=== PATIENT | male | born 1965 | race Caucasian/White ===

== ENCOUNTER 2020-08-13 02:37 | Outpatient (CLI) | payer BC, SELFPAY ==
[2020-08-14 15:27] LABS: COVID-19 RT-PCR Result NEGATIVE (Negative)
== END 2020-08-13 02:57 ==
PROVIDERS: PCP Neuromusculoskeletal Medicine & OMM; Visit Provider Surgery
DX: Z11.52 Encounter for screening for COVID-19 (principal); Z01.818 Encounter for other preprocedural examination
CPT/HCPCS: U0003

== ENCOUNTER 2020-08-17 10:12 | Day surgery (SDC) | payer BC, SELFPAY ==
--- NOTE | 2020-08-14 15:13 | NUR.NOTE ---
Addendum entered by Mario Busch 08/14/20 15:16: Voicemail was left with instructions and time for patient. Original Note: X2 Attempts to reach patient unsuccessfully. Arrival time of 1015, NPO status explained, arrive at main entrance with mask, on ,and have ride home set up in place prior to arrival. Reiterated to review bowel prep instructions prior to starting .Nursing Note:
--- NOTE | 2020-08-17 07:06 | COLE_ITS ---
Date of service: 08/17/20 Time of Service: 11:11 Colonoscopy Report Date of procedure: 08/17/20 Pre-op diagnosis general: Colon Cancer Screening Post-op diagnosis procedure note: other (polyps x12) Procedure: Colonoscopy with polypectomy Surgeon: Elizabeth Sanchez Anesthesia proc note operative: other (General/ASA 2/Alexander Jewell CRNA) Estimated blood loss (mL): 5 Pathology: other (Ascending x2,transverse x2. descending x1, sigmoid x5, rectal x2 polyps) Complications: None Disposition: same day Indications: The patient is here for Colonoscopy pre-op. He has no family history of colon cancer. He has not had any bowel habit changes. -Discussed colonoscopy bowel prep as well as the procedure. Discussed possible complications of the procedure to include bleeding, pain, perforation, missed small lesion/polyp, sore throat, aspiration and adverse reaction to the medications. Questions were answered to patient?s satisfaction. No guarantees were implied or given. Prep: Miralax/Dulcolax Procedure Start Time: : Procedure End Time: : Retraction Time: 40 minutes Findings: Multiple sessile and one pedunculated polyp Procedure Description: After informed consent was obtained the patient was taken to the procedure room and placed in a left decubitous position. Monitors were applied and a time out was done. The patients name, date of , procedure, allergies to medications and metal in their body was reviewed. The patient was then sedated. Once sedated and comfortable a rectal exam was done. External exam was normal. Internal exam revealed a normal sphincter tone and no palpable masses. The prostate felt smooth. The scope was then introduced and retro-flexed. No internal hemorrhoids, polyps or masses were identified on retro-flexion. The scope was then advanced to the cecum without difficulty. The ileocecal valve and appendiceal orifice were identified. The prep was good. The scope was then slowly retracted over 40 minutes back into the rectum. Polyps were removed with cold forceps in the as cending x2, transverse x2, descending x1, sigmoid x5 and rectum x1. One polyp was removed with a hot snare in the rectum. There was no diverticulosis noted. The scope was removed and the patient was woken up and taken back to Same day surgery in stable condition. The patient tolerated the procedure well and there were no immediate complications. Follow up: The patient should follow up in 3 years unless they develop changes in bowel habits or other new gastrointestinal complaints.
--- NOTE | 2020-08-17 07:07 | W.PM.DSUDISC ---
Discharge Plan Disposition Patient Disposition: HOME Condition: Good Discharge Details Reason For Visit: Colonoscopy Attending Provider: Elizabeth Sanchez Primary Care Provider: Robin Gentile Home Meds and New Rx's Prescriptions: Continued hydrochlorothiazide 25 mg tablet 25 mg PO DAILY RF: 0 losartan 100 mg tablet 100 mg PO DAILY RF: 0 Discontinued polyethylene glycol 3350 17 gram/dose powder 238 g PO ONCE Qty: 238 RF: 0 bisacodyl [Dulcolax (bisacodyl)] 5 mg tablet,delayed release (DR/EC) 5 mg PO ONCE Qty: 4 RF: 0 Discharge Instructions Instructions: Colorectal Polyps (DC) Additional Instructions: Findings: Polyps x12 Follow up: 3 years Please call if you develop: fevers >101.5 Nausea or Vomiting Abdominal pain that is not transient DAY SURGERY UNIT POST ENDOSCOPY INSTRUCTIONS 1. Because there will be medication in your system for the next 24 hours, you may feel a little sleepy. Your coordination will be affected. Therefore: a. Do not drive or operate dangerous equipment for 24 hours. b. Do not drink alcohol beverages for 24 hours (not even beer). c. Plan to go home and rest for the day. 2. Generally there are no restrictions on your activity after a day or so has gone by, but you may feel a bit fatigued for a few days. 3 After you arrive home you may have a light meal and return to a normal diet as you can tolerate it without feeling sick to your stomach. 4. After surgery, you may feel pain or discomfort. This should be only transient, but if it persists please contact your doctor. 5. If there are any questions regarding the findings of your procedure, please feel free to contact your doctor. 6. If you are unable to contact your doctor with a problem, contact the hospital at [phone]. 7. Continue all your regular medications unless directed otherwise. I understand the above instructions and have no questions. Signature of Patient or Responsible Adult Escort Date/Time Name of Responsible Adult Escort Signature of Nurse Date/Time Activity:: Activity as Tolerated Diet:: As Tolerated Discharge Orders Discharge Orders: Discharge Order (Routine); Ordered 08/17/20 Ordered By: Elizabeth Sanchez
[2020-08-17 10:30] VITALS: BP 143/84; PULSE 68; RESP 18; TEMP 36.9; O2SAT 97
[2020-08-17] MEDS: Lactated Ringers 1,000 ML 80 ML IV (10:40)
--- NOTE | 2020-08-17 11:26 | BOWEL_PTH ---
PATIENT: ZACKERY AGMBLE LOC: [facility] U#:[id number] AGE/SX: 55/M ROOM: RE08/17/[address]: Elizabeth Sanchez MD : [id number] BED: DIS: 08/17/2020 SPEC #: [id number] RECD: 08/17/20 12:24 STATUS: JOSE RE #: [id number] SEB: 08/17/20 11:[address]: Elizabeth Sanchez DEPT: Surgical Specimen RECD BY: Nora Mclain ENTERED: 08/17/20 12:26 SP TYPE: Bowel OTHR DR: Robin Gentile Tissues: 1 - BIOPSY BOWEL 2 - BIOPSY BOWEL 3 - BIOPSY BOWEL 4 - BIOPSY BOWEL 5 - BIOPSY BOWEL Procedures: GROSS AND MICRO LEVEL 4 Comments: [id number]
[2020-08-17 12:30] VITALS: BP 121/68; PULSE 70; RESP 16; TEMP 36.4; O2SAT 99
[2020-08-17 12:58] VITALS: BP 134/84; PULSE 63; RESP 16; TEMP 36.9; O2SAT 100
== END 2020-08-17 13:30 | disposition home or self-care (01) ==
LOC: SUR 10:12
PROVIDERS: PCP Neuromusculoskeletal Medicine & OMM; Visit Provider Surgery
PROC: 0DJD8ZZ Inspection of Lower Intestinal Tract, Via Natural or Artificial Opening Endoscopic (ICD-10-PCS; CPT 45378; principal; 2020-08-17 11:30)
DX: Z12.11 Encounter for screening for malignant neoplasm of colon (principal); D12.2 Benign neoplasm of ascending colon; D12.3 Benign neoplasm of transverse colon; D12.4 Benign neoplasm of descending colon; D12.8 Benign neoplasm of rectum
CPT/HCPCS: 45385; 45380; 88305; J2001

== ENCOUNTER 2023-05-04 08:13 | Outpatient (CLI) | payer BC, SELFPAY ==
[2023-05-04 08:30] VITALS: BP 134/81; PULSE 66; RESP 20; TEMP 36.6; O2SAT 96
--- NOTE | 2023-05-04 09:03 | PDOC.PAIN ---
Date of service: 05/04/23 Time of Service: 09:04 Pain Managment Procedure Note Procedure Note Procedure Note: Procedure Note Cervical Interlaminar Epidural Steroid Injection Date of Service: May 04, 2023 Patient:? ZACKERY GAMBLE? Provider:? Minor Lynch DO, MPH ZACKERY has been referred to the [facility] for cervical epidural steroid injection.? Pre-operative diagnosis: Cervical Radiculopathy Post-operative diagnosis: Same Pre-procedure pain: VAS= 8/10 Comments: He was in Neurosurgery at [facility] on 12/22/22 and this procedure was recommended. ZACKERY was interviewed and the medical record was reviewed.? There were no medical, pharmacologic, radiographic or other structural contraindications to attempting fluoroscopically guided cervical interlaminar epidural steroid injection.? Risks, potential side effects, indications, and potential benefits of the procedure were reviewed with ZACKERY.? Questions and concerns were addressed.? After it was clear that the patient was fully informed about the procedure, the printed consent form was signed by the patient and myself.? ZACKERY was placed in the prone position on the fluoroscopy table and automated blood pressure cuff as well as pulse oximeter was applied. A standard time-out procedure was performed. The skin entry point for entering the epidural space by a midline C7-T1 interlaminar approach was identified under fluoroscopy and marked.? The skin entry point was thoroughly cleaned with Chlorhexadine preparation and the skin was draped.? Next a mixture of 2 mls of 1% lidocaine was infiltrated into the area of the planned skin entry point and underlying subcutaneous tissues.? Next an 18 gauge Tuohy needle was placed under fluoroscopic guidance and with loss of resistance technique into the epidural space utilizing multiple AP and 55 degree contralateral fluoroscopic views.? Upon correct needle placement and loss of resistance, there were no paresthesia or return of blood or CSF through the needle. Next 1 mls of preservative-free Omnipaque 240 was injected with clear epidural spread in the A/P and oblique views. Next, a solution of 15 mg of preservative-free Dexamethasone was injected. This was followed with 1ml of preservative-free normal saline. No unusual discomfort was expressed by ZACKERY. The needle was withdrawn without difficulty. (49 mls of Omnipaque and 5 mg of Dexamethasone was wasted) ZACKERY was observed and was without hemodynamic, neurologic, or allergic reactions.? Fluoroscopic images were digitally archived. ZACKERY's vital signs were stable throughout the procedure and were as recorded in the doc flowsheet by the nursing staff.? If given, dosages of intravenous drugs for anxiolysis and analgesia were documented in MAR. Follow up plans and appointments were discussed with ZACKERY.? Post procedure instruction was given as documented in nursing documentation and having met discharge criteria, [facility]. A retrospective review of interlaminar cervical ESIs found that approximately two-thirds of patients with symptomatic cervical radiculopathy from disc herniation were able to avoid surgery for up to 1 year with treatment. Success rate was improved with earlier injection (< 100 days from diagnosis). Merna EL, Tracy V, Seda L, Urbano AN, Gustavo WHATLEY. Cervical epidural steroid injections for symptomatic disc herniations. J Spinal Disord Tech. 2006 November;19(3):183-6. ? COMMENTS: No apparent complications. Post-procedure pain: VAS= 3/10. ZACKERY to contact [facility] as needed. If at least 50% improvement in pain and/or function for at least 3 months is achieved, this procedure can be repeated. I personally completed the entire procedure. MINOR LYNCH DO, MPH ABPMR-subspecialty board certification in Pain Medicine [facility]
--- NOTE | 2023-05-04 09:06 | DI.RAD_ITS ---
Exam(s) XR PAIN CLINIC CERVICAL SP 2V EXAM: XR PAIN CLINIC CERVICAL SP 2V CLINICAL HISTORY: DX: Cervical Radiculopathy TECHNIQUE: 2D and realtime digital imaging was performed. Radiologist not present. CONTRAST MATERIAL: None. COMPARISON: No exams were available for comparison FINDINGS: Fluoroscopy was provided for pain management therapy. Please refer to procedure report or details. Radiation Exposure Index: Ka,r=4.66 mGy IMPRESSION: As above. RADIATION DOSE DELIVERED:
[2023-05-04 09:08] VITALS: BP 129/80; PULSE 68; RESP 17; O2SAT 95
[2023-05-04] MEDS: Omnipaque 240 MG/ML 50 ML BTL IJ (09:09)
[2023-05-04] MEDS: Dexamethasone Sod. Phos./Pres-Free 10 MG/ML VIAL IJ (09:10)
== END 2023-05-04 08:14 | disposition home or self-care (01) ==
LOC: PC 08:13
PROVIDERS: PCP Neuromusculoskeletal Medicine & OMM; Visit Provider Preventive Medicine Occupational Medicine
DX: M54.12 Radiculopathy, cervical region (principal)
CPT/HCPCS: 62321; 72040; Q9967